=== PATIENT | female | born 1970 | race Caucasian/White ===

== ENCOUNTER 2017-04-24 09:51 | Emergency (ER) | payer MEDICAID ==
[~2017-04-24] VITALS: Ht 175.3 cm; Wt 61.8 kg
[2017-04-24 09:55] VITALS: BP 111/76; PULSE 85; TEMP 97.8
[2017-04-24] MEDS ORDERED: FLEXERIL 1010 MG/TAB PO (10:46)
[2017-04-24] MEDS ORDERED: INVEGA6 MG PO (10:55)
[2017-04-24] MEDS ORDERED: WELLBUTRIN XL150 MG PO (10:55)
[2017-04-24] MEDS ORDERED: AMBIEN 10MG10 MG PO (10:56)
[2017-04-24] MEDS ORDERED: GEODON80 MG PO (10:56)
[2017-04-24] MEDS ORDERED: BANOPHEN25 M1 PO (10:57)
[2017-04-24] MEDS ORDERED: ATIVAN 1MG T1 MG/TAB PO (10:57)
== END 2017-04-24 11:19 | disposition home or self-care (01) ==
LOC: COL.ER 09:51
DX: M25.511 Pain in right shoulder (principal); F41.9 Anxiety disorder, unspecified

== ENCOUNTER 2017-04-24 20:45 | Emergency (ER) | payer MEDICAID ==
[~2017-04-24] VITALS: Ht 175.3 cm; Wt 61.8 kg
[~2017-04-24 20:45] MED LIST: AMBIEN 10MG10 MG PO; ATIVAN 1MG T1 MG/TAB PO; BANOPHEN25 M1 PO; FLEXERIL 1010 MG/TAB PO; GEODON80 MG PO; INVEGA6 MG PO; WELLBUTRIN XL150 MG PO
[2017-04-24 20:48] VITALS: BP 110/56; PULSE 96; TEMP 97.7
== END 2017-04-24 21:42 | disposition home or self-care (01) ==
LOC: COL.ER 20:45
DX: S29.012A Strain of muscle and tendon of back wall of thorax, initial encounter (principal); X58.XXXA Exposure to other specified factors, initial encounter; G20 Parkinson's disease; M25.511 Pain in right shoulder
CPT/HCPCS: J1885

== ENCOUNTER 2017-06-09 15:00 | Emergency (ER) | payer MEDICAID ==
[~2017-06-09] VITALS: Ht 175.3 cm; Wt 63.6 kg
[2017-06-09 15:02] VITALS: TEMP 98.7
[2017-06-09 17:02] VITALS: BP 147/89; PULSE 79
== END 2017-06-09 17:02 | disposition home or self-care (01) ==
LOC: COL.ER 15:00
DX: G43.909 Migraine, unspecified, not intractable, without status migrainosus (principal); F41.9 Anxiety disorder, unspecified; F25.9 Schizoaffective disorder, unspecified; F17.210 Nicotine dependence, cigarettes, uncomplicated
CPT/HCPCS: J0595

== ENCOUNTER 2017-07-02 20:03 | Emergency (ER) | payer MEDICAID ==
[2017-07-02 21:49] LABS: HEMATOCRIT 37.2 % (37.0-47.0); HEMOGLOBIN 12.9 g/dl (12.5-16.0); MEAN CELL VOLUME 90 fl (80.0-100.0); MEAN CORPUSCULAR HEMOGLOBIN 31 pg (27.0-31.0); MEAN CORPUSCULAR HGB CONC 35 g/dl (33.0-37.0); PLATELET COUNT 256 K/mm3 (130-400); RED BLOOD COUNT 4.12 M/mm3 (4.10-5.30); REDCELL DISTRIBUTION WIDTH-CV 12.3 % (11.5-14.5); WHITE BLOOD COUNT 18.1 K/mm3 (4.8-10.8)
[2017-07-02 21:50] LABS: ADD PATHOLOGY DIFF REVIEW NO
[2017-07-02 21:57] LABS: BAND 3 % (0-10); NEUTROPHILS 77 % (42.0-75.2); TOTAL CELLS COUNTED 100
[2017-07-02 21:58] LABS: PLATELET ESTIMATE NORMAL (NORMAL)
[2017-07-02 22:04] LABS: ACETAMINOPHEN < 10 ug/mL (10-30); ADJUSTED CALCIUM 9.4 mg/dL (8.4-10.2); ALANINE AMINOTRANSFERASE 38 U/L (9-52); ALKALINE PHOSPHATASE 68 U/L (50-136); ANION GAP 13 mmol/L (7-16); BILIRUBIN,TOTAL 1.3 mg/dL (0.0-1.0); BLOOD UREA NITROGEN 16 mg/dL (7-17); CALCIUM 10.2 mg/dL (8.4-10.2); CARBON DIOXIDE 21 mmol/L (22-30); CHLORIDE 107 mmol/L (98-107); CREATININE, serum 0.96 mg/dL (0.52-1.25); GLUCOSE 72 mg/dL (74-106); POTASSIUM 3.9 mmol/L (3.4-5.0); SALICYLATE < 1.0 mg/dL; SODIUM 140 mmol/L (137-145); TOTAL PROTEIN 7.6 gm/dL (6.4-8.2)
[2017-07-02 22:29] LABS: AMPHETAMINE URINE POSITIVE; BARBITURATES URINE NEGATIVE; BENZODIAZEPINES URINE POSITIVE; BUPRENORPHINE URINE NEGATIVE; METHADONE URINE NEGATIVE; OPIATES URINE NEGATIVE; OXYCODONE URINE NEGATIVE; PHENCYCLIDINE URINE NEGATIVE; PROPOXYPHENE URINE NEGATIVE; THC CANNABINOIDS URINE POSITIVE
[2017-07-02] MEDS ORDERED: ATIVAN 1MG T1 MG/TAB PO (23:25)
[2017-07-02 23:50] VITALS: BP 99/63; PULSE 79
== END 2017-07-02 23:57 | disposition home or self-care (01) ==
LOC: COL.ER 20:03
PROVIDERS: Family Medicine
DX: T43.621A Poisoning by amphetamines, accidental (unintentional), initial encounter (principal); R45.1 Restlessness and agitation; F15.182 Other stimulant abuse with stimulant-induced sleep disorder; F31.30 Bipolar disorder, current episode depressed, mild or moderate severity, unspecified; F41.9 Anxiety disorder, unspecified
CPT/HCPCS: J1200; J1630; J2060